=== PATIENT | female | born 1935 | race American Indian/Alaskan Native ===

== ENCOUNTER 2016-08-24 06:27 | Day surgery (SDC) | payer MEDICARE, MEDICAID ==
[~2016-08-24 06:27] MED LIST: Midazolam 1 MG/ML 2 ML SDV ONE; fentaNYL 100 MCG/2 ML SDV ONE
[2016-08-24] MEDS ORDERED: Sodium Chloride 0.9% 10 ML Syringe FLUSH PRN (07:00)
[2016-08-24] MEDS ORDERED: Dextrose 5%-0.45% NaCl 1,000 ML IV SCH (07:00)
[2016-08-24] MEDS ORDERED: fentaNYL 100 MCG/2 ML SDV IV ONE ×3 (07:57→09:51)
[2016-08-24] MEDS ORDERED: Midazolam 1 MG/ML 2 ML SDV IV ONE ×2 (07:59→09:51)
--- NOTE | 2016-08-24 10:22 | LETTER ---
08/24/2016 Horace Mckeon MD [address] [id number] RE: KEIKO BERGERON : [address] Mckeon: Ms. Keiko Bergeron had esophagogastroduodenoscopy done this morning, and she tolerated the procedure well. I herewith send a copy of the endoscopy note and photographs for your review. She is put on omeprazole 20 mg p.o. b.i.d. now. Thank you. Sincerely, [facility] /[id number]
[2016-08-24 10:27] VITALS: BP 121/73
--- NOTE | 2016-08-24 13:22 | OR ---
DATE: 08/24/2016 PROCEDURE: Esophagogastroduodenoscopy and multiple pinch biopsies. INSTRUMENT USED: GIF-H180 Olympus video panendoscope. PREMEDICATIONS: No oral topical anesthesia used. Fentanyl 100 mcg intravenous, Versed 1 mg intravenous. Nasal 2 L O2 cannula. The procedure was done under pulse oximetry, BP recording, and sorority supervisor. INDICATION: The patient with suspected chronic liver disease and recent imaging study suggestive remarkable varices, also has thrombocytopenia and Hemoccult positive stools. Esophagogastroduodenoscopy is performed for detection of any active erosive lesions, surveillance for esophageal varices, H. pylori status to be determined, endoscopic hemostasis therapy if needed. DESCRIPTION OF PROCEDURE: The scope was passed with ease. Adequate visualization of the esophagus was made from proximal to distal areas. No upper esophageal lesions identified. No distal esophageal stricture. Small uphill esophageal varices were noted without bleeding from them, no red spots identified. No esophageal polyp or tumor mass identified. No evidence of erosive esophagitis by [place] criteria. Z-line was seen at around 40 cm distal to the oral verge, configuration consistent with grade 1 by ZAP classification. No proximal gastric varices noted. Gastric fundus examination by retroflexion showed no polypoid lesions. No vascular ectasia, gastric polyp, or malignant mass noted. Some prominent prepyloric benign-appearing folds were noted with scattered erosions, no bleeding was noted from them. Duodenal bulb showed no ulcer. Visualized second part of the duodenum was unremarkable. Multiple pinch biopsies were taken from the gastric antrum and proximal body and sent for PyloriTek test for H. pylori and histopathology. No bleeding was noted from any of the visualized areas at the completion of examination. IMPRESSION: 1. Gastric antral erosions. 2. Small uphill esophageal varices. The patient tolerated the procedure well. [facility] /[id number]
== END 2016-08-24 10:10 | disposition home or self-care (01) ==
LOC: DL.ENDO 06:27
PROVIDERS: ATTEND Internal Medicine Gastroenterology
DX: K29.50 Unspecified chronic gastritis without bleeding (principal); I10 Essential (primary) hypertension; E11.9 Type 2 diabetes mellitus without complications; E78.00 Pure hypercholesterolemia, unspecified; E66.9 Obesity, unspecified; Z90.49 Acquired absence of other specified parts of digestive tract; Z98.890 Other specified postprocedural states; Z88.0 Allergy status to penicillin; Z88.6 Allergy status to analgesic agent; Z88.8 Allergy status to other drugs, medicaments and biological substances; Z79.899 Other long term (current) drug therapy; Z87.891 Personal history of nicotine dependence
CPT/HCPCS: 43239; 87077; 88305; 88342; J2250; J3010; J7042